=== PATIENT | female | born 1990 | race Caucasian/White ===

== ENCOUNTER 2016-07-21 03:36 | Inpatient (IN) | payer BC ==
[2016-07-21] MEDS ORDERED: Lactated Ringers 2,000 ML IV ONE (03:54)
[2016-07-21] MEDS ORDERED: BRETHINE 1 MG/ML SQ ONE (04:02)
[2016-07-21] MEDS ORDERED: Lactated Ringers 1,000 ML IV ONE (04:08)
[2016-07-21] MEDS ORDERED: Reglan 10 MG/2 ML IV SCH (04:15)
[2016-07-21] MEDS ORDERED: BICITRA 30 ML CUP PO SCH (04:15)
[2016-07-21] MEDS ORDERED: Pepcid 20 MG VIAL IV SCH (04:15)
[2016-07-21 04:21] LABS: Mean Cell Volume 95.3 fl (78-100); Mean Platelet Volume 11.9 fl (6-9.5); Platelet Count 312 K/mm3 (150-450); Red Blood Count 3.83 M/mm3 (4.1-5.4); Red Cell Distribution Width 12.4 % (11.5-14.0)
[2016-07-21] MEDS ORDERED: KEFZOL 1 GM ONE (04:26)
[2016-07-21] MEDS ORDERED: Lactated Ringers 1,000 ML IV SCH (04:30)
[2016-07-21 04:41] LABS: Mean Corpuscular Hemoglobin 31.8 pg (26-32)
[2016-07-21 04:54] LABS: INR 0.94 (0.8-3.0); PROTIME 10.6 SECONDS (9.95-12.35)
[2016-07-21 04:57] LABS: PTT 26.5 SECONDS (25.3-37.0)
[2016-07-21] MEDS ORDERED: SUBLIMAZE 100 MCG/2 ML IV ONE (05:00)
[2016-07-21] MEDS ORDERED: Naropin 0.5% 30 ML VIAL IJ ONE (05:00)
[2016-07-21] MEDS ORDERED: Ephedrine Sulfate 50 MG/ML IV ONE (05:00)
[2016-07-21] MEDS ORDERED: Astramorph-Pf 5 MG/10 ML IV ONE (05:00)
[2016-07-21 05:27] LABS: Bacteria FEW /HPF (NEGATIVE); COMPLETE URINE MICROSCOPIC? YES; Collection Type CLEAN CATCH; Epithelial Cells MODERATE /HPF (FEW); Mucus SLIGHT /HPF (NEGATIVE); Ph 6.5 (5-6); WBC 15-25 /HPF (0-5)
[2016-07-21] MEDS ORDERED: Dextrose 5%-Lr IV Solution 1000 ML 1,000 ML IV ONE (07:30)
[2016-07-21] MEDS ORDERED: TYLENOL EXTRA STRENGTH 500 MG PO PRN (07:40)
[2016-07-21] MEDS ORDERED: Dulcolax 10 MG SUPP PR PRN (07:40)
[2016-07-21] MEDS: Dextrose 5%-Lr IV Solution 1000 ML 1,000 ML IV SCH ×2 (07:40→17:10)
[2016-07-21] MEDS ORDERED: Mylicon 80MG PO PRN (07:40)
[2016-07-21] MEDS ORDERED: CORTISONE 1% CREAM TP PRN (07:40)
[2016-07-21] MEDS ORDERED: LANSINOH 40 GM TOP PRN (07:40)
[2016-07-21] MEDS ORDERED: Anucort-HC SUPPOSITORY PR PRN (07:40)
[2016-07-21] MEDS ORDERED: Dermoplast Spray TP PRN (07:40)
[2016-07-21] MEDS ORDERED: TUCKS TP PRN (07:40)
[2016-07-21] MEDS ORDERED: Nubain 10 MG/ML IV PRN (07:52)
[2016-07-21] MEDS ORDERED: BENADRYL 50 MG/ML IV PRN (07:52)
[2016-07-21] MEDS ORDERED: DEMEROL 50 MG IV PRN (07:52)
[2016-07-21] MEDS ORDERED: CLARITIN 10 MG PO PRN (07:52)
[2016-07-21] MEDS ORDERED: MORPHINE SULFATE 2 MG INJ IV PRN (07:52)
[2016-07-21] MEDS ORDERED: Zofran 4 MG/2 ML VIAL IV PRN (07:52)
[2016-07-21] MEDS ORDERED: Narcan 0.4 MG/ML IV PRN (07:52)
[2016-07-21] MEDS ORDERED: HOLD NARCOTIC ANALGESICS AND SEDATIVES X24 HR MC PRN (07:52)
--- NOTE | 2016-07-21 08:20 | XRAY ---
Indication: Cough. Elevated WBC. Comparison: None Portable apical lordotic chest demonstrate normal heart, lungs, and bony thorax.
[2016-07-21] MEDS: ROCEPHIN 1 Gm-D5w 50 ml Bag** 50 ML IV SCH (08:32)
[2016-07-21] MEDS: Zithromax 500 MG/ 250 ML NaCl Premix 250 ML IV SCH ×2 (09:16→09:30)
[2016-07-21] MEDS: Colace 100 MG PO SCH ×2 (10:27→22:06)
[2016-07-21] MEDS: FERREX 150 PO SCH (10:28)
[2016-07-21] MEDS ORDERED: Adacel Vial IM ONE (11:10)
--- NOTE | 2016-07-21 14:33 | OP ---
SURGERY DATE: 07/21/2016 TIME OF SURGERY: 0438 PREOPERATIVE DIAGNOSES: 1. Term intrauterine . 2. Active labor. 3. History of previous section. 4. Undesired fertility. POSTOPERATIVE DIAGNOSES: 1. Term intrauterine . 2. Active labor. 3. History of previous section. 4. Undesired fertility. 5. Delivered. OPERATIVE PROCEDURES: 1) Recent lower uterine segment transverse incision section. 2) Bilateral tubal ligation by partial salpingectomy. SURGEON: Dr. Vargas. ANESTHESIA: Spinal. HISTORY: The patient is a 25 year old white female presenting now in active labor. The patient was noted to be 4 cm and writhing in pain. She received terbutaline to help slow down the contractions as she had planned for repeat . Surgery team was called in at 4 o'clock in the morning. After discussing with the patient she desired to have the section performed. She was appraised of the risks of the procedure including risk of wound infection, bleeding requiring transfusion, possible injury to any intra-abdominal organs, also, failure rate of the tubal procedure of 1:300. The patient verbalized her understanding and desired to have the procedure performed. DESCRIPTION OF PROCEDURE: The patient was prepped and draped in the supine position. After adequate regional anesthesia was confirmed, a Pfannenstiel incision was opened at the previous scar and carried down sharply through the fascia which was divided in a horizontal fashion. The rectus muscles were then bluntly and sharply dissected away from the overlying fascia, and bluntly retracted laterally. The peritoneal cavity was entered. A bladder flap was developed and the bladder was retracted inferiorly. The uterus was scored in a horizontal fashion and entered in the midline. The wound was extended using bandage scissors. A white male was brought out through the abdominal wound. The cord was doubly clamped and divided between the clamps. The baby was handed off for further care. The placenta was then manually removed from the uterus. The uterus was exteriorized and wrapped in moist gauze. The wound edges were grasped with Jim clamps and the wound was then reapproximated using 1-0 chromic suture in a running, interlocking fashion. A Victoria clamp was used to elevate the left tube. A window was made in the mesosalpinx and the tube was tied on either side of the elevated area, and the interceding section was excised. The exposed edges of the tube were then cauterized using Bovie. The right tube was similarly treated. The cul-de-sac area was swabbed clear of blood and amniotic fluid and the uterus was replaced into the abdominal cavity. The pericolic gutters were also swabbed clear of blood and amniotic fluid. The peritoneum was then repaired using 3-0 chromic suture in running fashion. The fascia was repaired using 0 Vicryl suture in a running fashion. The skin edges were then reapproximated using annelise. The sponge, needle and instrument counts were reported as correct at the end of the procedure. The patient received 2 grams of Ancef intraoperatively after the cord was clamped. Estimated blood loss 250 cc. The patient was taken back to the recovery room in good condition.
[2016-07-21] MEDS ORDERED: PROVENTIL 2.5 MG/3 ML NEB IH ONE (16:02)
[2016-07-21] MEDS: PERCOCET TABLET 5/325MG PO PRN ×2 (17:06→23:44)
[2016-07-21] MEDS ORDERED: PROVENTIL 2.5 MG/3 ML NEB IH SCH (19:00)
[2016-07-21] MEDS: MOTRIN 400 MG PO PRN (20:12)
[2016-07-22] MEDS: Dextrose 5%-Lr IV Solution 1000 ML 1,000 ML IV SCH (01:23)
[2016-07-22] MEDS: PERCOCET TABLET 5/325MG PO PRN (05:20)
[2016-07-22] MEDS ORDERED: Restoril 15 MG PO PRN (06:00)
[2016-07-22] MEDS ORDERED: Phenergan 25 MG INJ IM PRN (06:00)
[2016-07-22] MEDS ORDERED: DEMEROL 75 MG IM PRN (06:00)
[2016-07-22] MEDS ORDERED: Ambien 10 MG PO PRN (06:00)
[2016-07-22 06:03] LABS: Mean Cell Volume 98.4 fl (78-100); Mean Corpuscular Hemoglobin 31.6 pg (26-32); Platelet Count 285 K/mm3 (150-450); Red Blood Count 3.13 M/mm3 (4.1-5.4); Red Cell Distribution Width 12.6 % (11.5-14.0); White Blood Count 16.8 K/mm3 (4.0-10.5)
[2016-07-22 07:39] LABS: Total Cells Counted 100
[2016-07-22 07:40] LABS: Platelet Estimate NORMAL (NORMAL)
[2016-07-22] MEDS: ROCEPHIN 1 Gm-D5w 50 ml Bag** 50 ML IV SCH (08:25)
[2016-07-22] MEDS: Zithromax 500 MG/ 250 ML NaCl Premix 250 ML IV SCH (09:17)
[2016-07-22] MEDS: FERREX 150 PO SCH (09:18)
[2016-07-22] MEDS: Colace 100 MG PO SCH ×2 (09:18→22:09)
[2016-07-22] MEDS: MOTRIN 400 MG PO PRN ×2 (09:30→17:25)
[2016-07-22] MEDS: PROVENTIL 2.5 MG/3 ML NEB IH PRN (09:47)
[2016-07-22] MEDS: Tylenol #3 Tablet PO PRN (19:53)
[2016-07-23] MEDS: Tylenol #3 Tablet PO PRN ×3 (00:32→20:02)
[2016-07-23] MEDS: MOTRIN 400 MG PO PRN ×3 (03:30→17:46)
[2016-07-23] MEDS: ROCEPHIN 1 Gm-D5w 50 ml Bag** 50 ML IV SCH (08:02)
[2016-07-23] MEDS: Colace 100 MG PO SCH ×2 (09:36→20:03)
[2016-07-23] MEDS: FERREX 150 PO SCH (09:36)
[2016-07-23] MEDS: Zithromax 500 MG/ 250 ML NaCl Premix 250 ML IV SCH (09:41)
[2016-07-23] MEDS ORDERED: PROVENTIL 2.5 MG/3 ML NEB IH ONE ×2 (15:37→22:03)
[2016-07-23] MEDS: PROVENTIL 2.5 MG/3 ML NEB IH PRN ×2 (15:43→22:05)
[2016-07-23 22:09] VITALS: O2SAT 97
[2016-07-24] MEDS: Tylenol #3 Tablet PO PRN ×2 (00:03→04:57)
[2016-07-24] MEDS: MOTRIN 400 MG PO PRN ×2 (01:58→07:55)
[2016-07-24 02:13] VITALS: PULSE 90
--- NOTE | 2016-07-24 07:39 | DS ---
DISCHARGE DIAGNOSES: 1) TERM INTRAUTERINE DELIVERY. REPEAT SECTION DELIVERY. 2) BRONCHITIS WITH BRONCHOSPASM. HOSPITAL COURSE: The patient is a 25 year-old white female who presented to labor and delivery in labor at 4 cm dilated. She had an elective repeat section scheduled and this was thus performed on the morning at 0430 hours due to the patient being in active labor. The patient did well postoperatively although she came in with bronchitis. She had significant cough, significant white blood cell count elevation of 25,000 and initially she had some wheezes bilaterally as well. The patient was treated with IV Rocephin and Zithromax. Over the ensuing three days she did improve with this. Her vital signs remained good. Her O2 saturations remained in normal range at 96-97% on room air. The patient was felt to be ready for discharge home on the morning of 07/24/2016. She was discharged home on Augmentin 875 mg twice a day for seven days. She was given Tylenol #3 for pain control and a breast pump as she is breast feeding. The patient was instructed to return to the office in three days for follow up evaluation and removal of the annelise or to call if she had any problems in the interim with increasing fever, shortness of breath, redness of the wound site, abdominal pain or increase in vaginal bleeding.
[2016-07-24] MEDS: Colace 100 MG PO SCH (10:19)
[2016-07-24] MEDS: FERREX 150 PO SCH (10:19)
[2016-07-24 11:52] VITALS: BP 127/78
== END 2016-07-24 11:40 | disposition home or self-care (01) | DRG 766 ==
LOC: OB 03:36 → OBSVTOIN 04:00
PROVIDERS: ADMIT Family Medicine; ATTEND Family Medicine
PROC: 10D00Z1 Extraction of Products of Conception, Low, Open Approach (ICD-10-PCS; principal; 2016-07-21)
PROC: 0UB70ZZ Excision of Bilateral Fallopian Tubes, Open Approach (ICD-10-PCS; 2016-07-21)
DX: O34.219 Maternal care for unspecified type scar from previous cesarean delivery (principal); Z3A.38 38 weeks gestation of pregnancy; Z37.0 Single live birth; Z30.2 Encounter for sterilization; J40 Bronchitis, not specified as acute or chronic
CPT/HCPCS: 01961; 36415; 64425; 71010; 76942; 80307; 81000; 85025; 85027; 85610; 85730; 86850; 86900; 86901; 87086; 88302; 90715; 94640; 94760; 94799; G0378; J0456; J0690; J0696; J2274; J2405; J2795; J3010; L0625; A9270-GY

== ENCOUNTER 2022-02-05 11:34 | Emergency (ER) | payer MEDICAID, OTHER ==
--- NOTE | 2022-02-05 11:37 | ERPHSYRPT ---
- History of Present Illness Time Seen by Provider: 02/05/22 11:37 Source: patient Exam Limitations: no limitations Physician History: This is a 31-year-old white female who has had intermittent back/flank pain on the right side for 6 days with associated nonmeasured fever, chills and sweats. It has been significant enough at times to wake her up out of sleep. Now she has no significant symptoms. Often she has a 2 out of 10 pressure sensation. Patient denies any acute traumatic injury. She does not have dysuria or hematuria. Patient states that she often lifts 40 to 60 pounds at work several times a day when she is working. Timing/Duration: day(s) (6) Method of Injury: unknown Quality: pressure Back Pain Location: paraspinous muscles (Right side) Severity of Pain-Max: moderate Severity of Pain-Current: none Associated Symptoms: fever, chills, sweating, lower back pain (The right side), other (Today she does not have any pain symptoms. She is afebrile) Allergies/Adverse Reactions: No Known Allergies Allergy (Verified 02/05/22 11:56) Hx Tetanus, Diphtheria Vaccination/Date Given: No (DOESNT THINK SO) Hx Influenza Vaccination/Date Given: Yes (2 YEARS AGO) Hx Pneumococcal Vaccination/Date Given: No Travel Risk - International Travel Have you traveled outside of the country in past 3 weeks: No - Coronavirus Screening Are you exhibiting any of the following symptoms?: No Close contact with a COVID-19 positive Pt in past 14-21 Days: No - Review of Systems Constitutional: No Symptoms Eyes: No Symptoms Ears, Nose, & Throat: No Symptoms Respiratory: No Symptoms Cardiac: No Symptoms Abdominal/Gastrointestinal: No Symptoms Genitourinary Symptoms: Flank Pain (Right side) Musculoskeletal: No Symptoms Skin: No Symptoms Neurological: No Symptoms Psychological: No Symptoms Endocrine: No Symptoms Hematologic/Lymphatic: No Symptoms Immunological/Allergic: No Symptoms All Other Systems: Reviewed and Negative - Past Medical History Pertinent Past Medical History: No Neurological History: No Pertinent History Cardiac History: No Pertinent History Respiratory History: Other Endocrine Medical History: No Pertinent History Musculoskeletal History: Other Other Medical History: Pt is a smoker - Past Surgical History Past Surgical History: Yes Female Surgical History: Section - Social History Smoking Status: Heavy tobacco smoker How long have you smoked: 13 y Exposure to second hand smoke: Yes Drug Use: none Patient Lives Alone: No - Nursing Vital Signs Nursing Vital Signs: Initial Vital Signs Temperature 98.7 F 02/05/22 11:39 Pulse Rate 124 H 02/05/22 11:39 Blood Pressure 156/84 02/05/22 11:39 O2 Sat by Pulse Oximetry 98 02/05/22 11:39 Pain Scale Pain Intensity [Right 2 Posterior Medial Back] Pain Intensity 2 - Physical Exam General Appearance: no apparent distress, alert, anxiety Eye Exam: PERRL/EOMI, eyes nml inspection Ears, Nose, Throat Exam: normal ENT inspection, moist mucous membranes Neck Exam: normal inspection, non-tender, supple, full range of motion Respiratory Exam: normal breath sounds, lungs clear, airway intact, No chest tenderness, No respiratory distress Cardiovascular Exam: tachycardia Gastrointestinal Exam: soft, normal bowel sounds, No tenderness Pelvic Exam: not done Rectal Exam: not done Back Exam: normal inspection, normal range of motion, CVA tenderness (Right), No vertebral tenderness Extremity Exam: normal inspection, normal range of motion, pelvis stable Neurologic Exam: alert, oriented x 3, cooperative, golf course starter II-XII nml as tested, normal mood/affect, nml cerebellar function, nml station & gait, sensation nml Skin Exam: normal color, warm, dry Lymphatic Exam: No adenopathy SpO2 Interpretation: normal O2 Delivery: Room Air - Course Nursing assessment & vital signs reviewed: Yes Ordered Tests: Active Orders 24 hr Category Date Time Status CULTURE,URINE Stat Lab 02/05/22 12:01 Received HCG,QUALITATIVE URINE Stat Lab 02/05/22 12:01 Completed UA W/RFX CULTURE Stat Lab 02/05/22 12:01 Completed Lab/Rad Data: Laboratory Results 02/05/22 02/05/22 Range/Units 12:01 12:01 Urinalys Dipstick Clnc MAIN LAB Urine Color YELLOW (YELLOW) Urine Appearance SLIGHTLY CLOUDY (CLEAR) Urine pH 6.0 (5-6) Ur Specific [place] 1.025 (1.005-1.025) POC Urine Protein Conf >=300 (Negative) Urine Ketones NEGATIVE (NEGATIVE) Urine Nitrite POSITIVE (NEGATIVE) Urine Bilirubin SMALL (NEGATIVE) Urine Urobilinogen 1 (0-1) mg/dL Urine Leukocytes NEGATIVE (NEGATIVE) Urine WBC (Auto) 26-50 (0-5) /HPF Urine RBC (Auto) 6-10 (0-2) /HPF U Hyaline Cast (Auto) 3-5 (0-2) /LPF U Epithel Cells (Auto) FEW (FEW) /HPF Urine Bacteria (Auto) FEW (NEGATIVE) /HPF Urine RBC MODERATE (0-5) Stoney/ul Urine Mucus (Auto) SLIGHT (NEGATIVE) /HPF Ur Culture Indicated? YES Urine Glucose NEGATIVE (NEGATIVE) mg/dL Urine HCG, Qual NEGATIVE (Negative) - Progress Progress: unchanged Counseled pt/family regarding: lab results, diagnosis - Departure Departure Disposition: Home Clinical Impression: UTI (urinary tract infection) Condition: Stable Critical Care Time: No Referrals: RIKKI MATHEWS NP [Primary Care Provider] - Follow up/PCP as directed Additional Instructions: Drink plenty of clear liquids. Use Tylenol and ibuprofen for pain control. Take your antibiotics as prescribed. Prescriptions: Ciprofloxacin [Cipro 500 MG] 500 mg PO BID #14 tablet
[2022-02-05 12:45] LABS: Bacteria FEW /HPF (NEGATIVE); Epithelial Cells FEW /HPF (FEW); Mucus SLIGHT /HPF (NEGATIVE); WBC 26-50 /HPF (0-5)
[2022-02-05 12:52] LABS: Appearance SLIGHTLY CLOUDY (CLEAR); Bilirubin SMALL (NEGATIVE); Dipstick done @ ? MAIN LAB; Glucose NEGATIVE (NEGATIVE); Ketones NEGATIVE (NEGATIVE); Nitrite POSITIVE (NEGATIVE); Protein,Urine Dip >=300 (Negative); RBC MODERATE Ery/ul (0-5); Specific Gravity 1.025 (1.005-1.025); Urobilinogen 1 mg/dL (0-1)
[2022-02-05 12:53] LABS: Urine Cultured Indicated? YES
[2022-02-05] MEDS ORDERED: Rocephin 1000 MG INJ IM ONE (13:16)
[2022-02-05] MEDS ORDERED: ROCEPHIN 1 Gm-D5w 50 ml Bag** 1 G/50 ML IVPB IV STA (13:25)
[2022-02-05] MEDS ORDERED: ROCEPHIN 1 Gm-D5w 50 ml Bag** 1 G/50 ML IVPB IV ONE (13:25)
[2022-02-05 13:39] VITALS: BP 121/78; PULSE 96; O2SAT 97
== END 2022-02-05 13:45 | disposition home or self-care (01) ==
LOC: ED 11:34
DX: N39.0 Urinary tract infection, site not specified (principal); R10.9 Unspecified abdominal pain; R50.9 Fever, unspecified; Z72.0 Tobacco use
CPT/HCPCS: 36000; 81015; 81025; 87077; 87086; 87186; 96365; 99283; J0696

== ENCOUNTER 2024-11-20 05:13 | Emergency (ER) | payer BC ==
[2024-11-20 05:33] VITALS: TEMP 98.3
[2024-11-20 06:04] LABS: BASOPHIL % 0.8 % (0.1-1.2); Basophil (Absolute #) 0.09 x10^3/uL (0.01-0.08); Eosinophil (Absolute #) 0.20 x10^3/uL (0.04-0.36); Hematocrit 40.0 % (34.1-44.9); Hemoglobin 13.5 g/dL (11.2-15.7); IMMATURE GRAN # 0.04 x10^3u/L (0.001-0.031); IMMATURE GRAN % 0.4 % (0.001-0.429); Lymphocyte (Absolute #) 1.89 x10^3/uL (1.18-3.74); Mean Corpuscular Hemoglobin 31.8 pg (25.6-32.2); Mean Corpuscular Hgb Concent. 33.8 g/dL (32.2-35.5); Monocyte (Absolute #) 0.64 x10^3/uL (0.24-0.86); NUCLEATED RBC # 0.00 x10^3u/L (0.00-0.012); NUCLEATED RBC % 0.0 % (0.00-0.2); Platelet Count 241 x10^3/uL (182-369); Red Blood Count 4.24 x10^6/uL (3.93-5.22); White Blood Count 11.0 x10^3/uL (3.98-10.04)
[2024-11-20 06:10] LABS: Glucose, Urine Negative (Negative); Protein,Urine Dip Negative (Negative); RBC 0-2 /HPF (0-5)
[2024-11-20 06:16] LABS: Calcium 9.9 mg/dL (8.4-10.2); Carbon Dioxide 19.0 mmol/L (22-30); Creatinine 1 0.74 mg/dL (0.52-1.04); EST GLOMERULAR FILTRATION RATE 108.1 ML/MIN; Glucose 113.0 mg/dL (74-106); HCG URINE TEST NEGATIVE (NEGATIVE); Potassium 4.4 mmol/L (3.5-5.1); SGOT/AST 24.0 U/L (14-36); SGPT/ALT 12.0 U/L (0-35); Total Protein 7.3 g/dL (6.3-8.2)
[2024-11-20] MEDS ORDERED: TORAdol 30 mg Injection ONE (06:19)
[2024-11-20] MEDS: TORAdol 30 mg Injection IV ONE (06:21)
--- NOTE | 2024-11-20 06:22 | ERPHSYRPT ---
- History of Present Illness Historian: patient, family Exam Limitations: no limitations Patient Subjective Stated Complaint: c/o abdominal pain Triage Nursing Assessment: patient brought to ED by with c/o right sided abdominal pain that started this morning. aptient has bowel sounds in all 4 quads, pain is 9/10 and radiates to back and flank area, states that is constant and sharp, afebrile, gait stead, vitals wnl, skin w/n/d, denies N/V/D, patient doesn't appear to be in any distress at this time. Hx Tetanus, Diphtheria Vaccination/Date Given: No (DOESNT THINK SO) Hx Influenza Vaccination/Date Given: No Hx Pneumococcal Vaccination/Date Given: No <ARIES MONTEMAYOR - Last Filed: 11/20/24 06:18> <ANTONIO DAHL - Last Filed: 11/20/24 07:51> - History of Present Illness Time Seen by Provider: 11/20/24 06:16 Physician History: 34-year-old female presented in the ER with complaints of right-sided abdominal pain for almost 2 to 3 hours moderate to severe sharp shooting with some radiation to the right groin area, aggravation with palpation movements and partial relief with being still. Reports some burning urination but no hematuria hesitancy or urgency. No fever or chills reported. No history of kidney stones or recurrent UTI. Has associated nausea but no vomiting. (ARIES MONTEMAYOR) Allergies/Adverse Reactions: No Known Allergies Allergy (Verified 11/20/24 05:23) Travel Risk - International Travel Have you traveled outside of the country in past 3 weeks: No - Emerging Infectious Disease Are you exhibiting symptoms associated with any current EIDs: Yes Symptoms: Abdominal Pain <ARIES MONTEMAYOR - Last Filed: 11/20/24 06:18> - Review of Systems Constitutional: No Symptoms Ears, Nose, & Throat: No Symptoms Respiratory: No Symptoms Cardiac: No Symptoms Abdominal/Gastrointestinal: Abdominal Pain, Nausea Genitourinary Symptoms: Dysuria, Flank Pain Musculoskeletal: Back Pain Skin: No Symptoms Neurological: No Symptoms Psychological: No Symptoms Endocrine: No Symptoms Hematologic/Lymphatic: No Symptoms <ARIES MONTEMAYOR - Last Filed: 11/20/24 06:18> - Past Medical History Pertinent Past Medical History: No Neurological History: No Pertinent History Cardiac History: No Pertinent History Respiratory History: Other Endocrine Medical History: No Pertinent History Musculoskeletal History: Other Other Medical History: Pt is a smoker, 2 c-sections - Past Surgical History Past Surgical History: Yes Female Surgical History: Section - Female History Hx Last Menstrual Period: unsure Hx Now: No - Social History Smoking Status: Heavy tobacco smoker How long have you smoked: 13 y Exposure to second hand smoke: Yes Drug Use: none - Social Determinants of Health Will the patient participate in the screening: Yes Do you worry about a steady place to live?: No Do you have any problems with any of the following?: No known problems In the past 12 months,have you had to go without utilities?: No Transportation Issues: No Has anyone in your support network made you feel unsafe?: No Have you or anyone in your house had to go w/o enough food: No <ARIES MONTEMAYOR - Last Filed: 11/20/24 06:18> - Physical Exam General Appearance: no apparent distress Eye Exam: PERRL/EOMI Ears, Nose, Throat Exam: normal ENT inspection Neck Exam: normal inspection, full range of motion Respiratory Exam: normal breath sounds, lungs clear Cardiovascular Exam: regular rate/rhythm, normal heart sounds Gastrointestinal/Abdomen Exam: soft, normal bowel sounds, tenderness (Right flank/right upper and lower quadrant mild guarding) Back Exam: CVA tenderness (Right side) Extremity Exam: normal inspection, normal range of motion Neurologic Exam: alert, oriented x 3, cooperative Skin Exam: normal color SpO2 Interpretation: normal SpO2: 99 O2 Delivery: Room Air <ARIES MONTEMAYOR - Last Filed: 11/20/24 06:18> - Nursing Vital Signs Nursing Vital Signs: Initial Vital Signs Temperature 98.3 F 11/20/24 05:23 Pulse Rate 72 11/20/24 05:23 Respiratory Rate 17 11/20/24 05:23 Blood Pressure 132/66 11/20/24 05:23 O2 Sat by Pulse Oximetry 98 11/20/24 05:23 Pain Scale Pain Intensity 0 Ordered Tests: Active Orders 24 hr Category Date Time Status IV Insertion STAT Care 11/20/24 05:44 Active ABDOMEN AND PELVIS W/0 CONTRAS [CT] Stat Exams 11/20/24 06:33 Completed CBC W DIFF Stat Lab 11/20/24 05:45 Completed CMP Stat Lab 11/20/24 05:45 Completed CULTURE,URINE Stat Lab 11/20/24 05:45 Received HCG QUALITATIVE, URINE Stat Lab 11/20/24 05:45 Completed UA W/RFX UR CULTURE Stat Lab 11/20/24 05:45 Completed Medication Summary Discontinued Medications Generic Name Dose Route Start Last Admin Trade Name Jovanni PRN Reason Stop Dose Admin Sodium Chloride 1,000 mls @ 999 mls/hr 11/20/24 06:17 11/20/24 07:23 Sodium Chloride 0.9% 1000 Ml IV 11/20/24 07:17 Infused .Q1H1M STA Infusion Sodium Chloride Confirm 11/20/24 06:19 Sodium Chloride 0.9% 1000 Ml Administered 11/20/24 06:20 Dose 1,000 mls @ ud .ROUTE .STK-MED ONE Ketorolac Tromethamine 30 mg 11/20/24 06:17 11/20/24 06:21 Ketorolac Tromethamine 30 Mg/Ml Inj IV 11/20/24 06:18 30 mg STAT ONE Administration Ketorolac Tromethamine Confirm 11/20/24 06:19 Ketorolac Tromethamine 30 Mg/Ml Inj Administered 11/20/24 06:20 Dose 30 mg .ROUTE .STK-MED ONE Ondansetron HCl 4 mg 11/20/24 06:17 11/20/24 06:24 Ondansetron Hcl 4 Mg/2 Ml Vial IV 11/20/24 06:18 4 mg STAT ONE Administration Ondansetron HCl Confirm 11/20/24 06:23 Ondansetron Hcl 4 Mg/2 Ml Vial Administered 11/20/24 06:24 Dose 4 mg .ROUTE .STK-MED ONE Lab/Rad Data: Laboratory Result Diagrams 11/20/24 05:45 11/20/24 05:45 Laboratory Results 11/20/24 11/20/24 11/20/24 Range/Units 05:45 05:45 05:45 WBC 11.0 H (3.98-10.04) x10^3/uL RBC 4.24 (3.93-5.22) x10^6/uL Hgb 13.5 (11.2-15.7) g/dL Hct 40.0 (34.1-44.9) % MCV 94.3 (79.4-94.8) fL MCH 31.8 (25.6-32.2) pg MCHC 33.8 (32.2-35.5) g/dL RDW 12.3 (11.7-14.4) % Plt Count 241 (182-369) x10^3/uL MPV 11.0 (9.4-12.3) fL Gran % 74.0 H (34.0-71.1) % Immature Gran % (Auto) 0.4 (0.001-0.429) % Nucleat RBC Rel Count 0.0 (0.00-0.2) % Eos # (Auto) 0.20 (0.04-0.36) x10^3/uL Immature Gran # (Auto) 0.04 H (0.001-0.031) x10^3u/L Absolute Lymphs (auto) 1.89 (1.18-3.74) x10^3/uL Absolute Monos (auto) 0.64 (0.24-0.86) x10^3/uL Absolute Nucleated RBC 0.00 (0.00-0.012) x10^3u/L Lymphocytes % 17.2 L (19.3-51.7) % Monocytes % 5.8 (4.7-12.5) % Eosinophils % 1.8 (0.7-5.8) % Basophils % 0.8 (0.1-1.2) % Absolute Granulocytes 8.11 H (1.56-6.13) x10^3/uL Basophils # 0.09 H (0.01-0.08) x10^3/uL Sodium 139 (135-145) mmol/L Potassium 4.4 (3.5-5.1) mmol/L Chloride 110 H (98-107) mmol/L Carbon Dioxide 19 L (22-30) mmol/L Anion Gap 13.9 (5-15) MEQ/L BUN 16 (7-17) mg/dL Creatinine 0.74 (0.52-1.04) mg/dL Estimated GFR 108.1 ML/MIN Glucose 113 H (74-106) mg/dL Calcium 9.9 (8.4-10.2) mg/dL Total Bilirubin 0.30 (0.2-1.3) mg/dL AST 24 (14-36) U/L ALT 12 (0-35) U/L Alkaline Phosphatase 61 (38-126) U/L Serum Total Protein 7.3 (6.3-8.2) g/dL Albumin 4.5 (3.5-5.0) g/dL Urine Color (Yellow) Urine Appearance (Clear) Urine pH (4.6-8.0) Ur Specific [place] (1.005-1.030) Urine Protein (Negative) Urine Glucose (UA) (Negative) mg/dL Urine Ketones (Negative) Urine Blood (Negative) Urine Nitrite (Negative) Urine Bilirubin (Negative) Urine Urobilinogen (0.2) mg/dL Ur Leukocyte Esterase (Negative) U Hyaline Cast (Auto) (0-2) /LPF Urine Microscopic RBC (0-5) /HPF Urine Microscopic WBC (0-5) /HPF Ur Epithelial Cells (None Seen) /HPF Urine Bacteria (None Seen) /HPF Urine Culture Reflexed (NO) Urine HCG, Qual NEGATIVE (NEGATIVE) 11/20/24 Range/Units 05:45 WBC (3.98-10.04) x10^3/uL RBC (3.93-5.22) x10^6/uL Hgb (11.2-15.7) g/dL Hct (34.1-44.9) % MCV (79.4-94.8) fL MCH (25.6-32.2) pg MCHC (32.2-35.5) g/dL RDW (11.7-14.4) % Plt Count (182-369) x10^3/uL MPV (9.4-12.3) fL Gran % (34.0-71.1) % Immature Gran % (Auto) (0.001-0.429) % Nucleat RBC Rel Count (0.00-0.2) % Eos # (Auto) (0.04-0.36) x10^3/uL Immature Gran # (Auto) (0.001-0.031) x10^3u/L Absolute Lymphs (auto) (1.18-3.74) x10^3/uL Absolute Monos (auto) (0.24-0.86) x10^3/uL Absolute Nucleated RBC (0.00-0.012) x10^3u/L Lymphocytes % (19.3-51.7) % Monocytes % (4.7-12.5) % Eosinophils % (0.7-5.8) % Basophils % (0.1-1.2) % Absolute Granulocytes (1.56-6.13) x10^3/uL Basophils # (0.01-0.08) x10^3/uL Sodium (135-145) mmol/L Potassium (3.5-5.1) mmol/L Chloride (98-107) mmol/L Carbon Dioxide (22-30) mmol/L Anion Gap (5-15) MEQ/L BUN (7-17) mg/dL Creatinine (0.52-1.04) mg/dL Estimated GFR ML/MIN Glucose (74-106) mg/dL Calcium (8.4-10.2) mg/dL Total Bilirubin (0.2-1.3) mg/dL AST (14-36) U/L ALT (0-35) U/L Alkaline Phosphatase (38-126) U/L Serum Total Protein (6.3-8.2) g/dL Albumin (3.5-5.0) g/dL Urine Color Yellow (Yellow) Urine Appearance Cloudy A (Clear) Urine pH 5.0 (4.6-8.0) Ur Specific [place] >=1.030 A (1.005-1.030) Urine Protein Negative (Negative) Urine Glucose (UA) Negative (Negative) mg/dL Urine Ketones Trace A (Negative) Urine Blood Trace (Negative) Urine Nitrite Negative (Negative) Urine Bilirubin Negative (Negative) Urine Urobilinogen 1.0 A (0.2) mg/dL Ur Leukocyte Esterase Negative (Negative) U Hyaline Cast (Auto) NONE SEEN (0-2) /LPF Urine Microscopic RBC 0-2 (0-5) /HPF Urine Microscopic WBC 6-10 A (0-5) /HPF Ur Epithelial Cells Many A (None Seen) /HPF Urine Bacteria Moderate A (None Seen) /HPF Urine Culture Reflexed YES (NO) Urine HCG, Qual (NEGATIVE) - Progress Counseled pt/family regarding: lab results, diagnosis, need for follow-up, rad results <ANTONIO DAHL - Last Filed: 11/20/24 07:51> - Progress Progress Note: 11/20/24 07:47 I interpreted the patient's laboratory data results. Based on the laboratory data results and history from the patient, the patient has leukocytosis, dysuria, the patient does have findings suggestive of urinary tract infection we will treat her with antibiotics. In addition, the patient has mild dehydration as evidence of ketones in her urine. The CT scan of the abdomen pelvis without contrast was interpreted by the radiologist and I reviewed the impression. The impression states unremarkable study. (ANTONIO DAHL) <ARIES MONTEMAYOR - Last Filed: 11/20/24 06:18> - Departure Departure Disposition: Home Critical Care Time: No <ANTONIO DAHL - Last Filed: 11/20/24 07:51> - Departure Clinical Impression: Dysuria, Bacteriuria, Pyuria, Mild dehydration, Leukocytosis Condition: Stable Referrals: ROCKY HAYWARD MD [Primary Care Provider, [facility]] - Follow up/PCP as directed Additional Instructions: Drink plenty of clear liquids. Use Tylenol and ibuprofen for pain control. Call your primary care provider today, 11/20/2024, to make arrangements for follow-up appointment for further evaluation management. Prescriptions: Ciprofloxacin [Cipro 500 MG] 500 mg PO BID #14 tablet
[2024-11-20] MEDS ORDERED: Zofran 4 MG/2 ML VIAL ONE (06:23)
[2024-11-20] MEDS: Zofran 4 MG/2 ML VIAL IV ONE (06:24)
--- NOTE | 2024-11-20 07:46 | XRAY ---
CLINICAL HISTORY: right side pain COMPARISON: None. TECHNIQUE: Contiguous axial images were obtained from the level of the diaphragm to the pubic symphysis without intravenous or oral contrast. Coronal and sagittal reconstructions were likewise performed and indicated to increase the sensitivity for detecting clinically relevant pathology. CT scan was performed according to ALARA (as low as reasonable achievable). FINDINGS: The visualized lung bases are clear. Evaluation of the abdominal and pelvic visceral organs is limited without intravenous contrast. The unenhanced liver, spleen, pancreas, and adrenal glands are grossly unremarkable. The gallbladder is present. The kidneys are normal in size and attenuation without obvious calcification. There is no hydronephrosis or perinephric stranding. The ureters are normal in caliber. The urinary bladder is normal in contour. Pelvic viscera are grossly unremarkable. No adenopathy or fluid collections are seen. No evidence of focal or diffuse bowel wall thickening or evidence of bowel obstruction is seen. The appendix is visualized in the right lower quadrant and appears within normal limits. The aorta is normal in caliber. No aggressive appearing osseous lesions are identified. IMPRESSION: 1. Unremarkable study. Electronically Signed by: Bola Austin MD. (11/20/2024 07:44:20 EDT)
[2024-11-20] MEDS: Levofloxacin 500 MG Tablet PO ONE (07:53)
[2024-11-20] MEDS ORDERED: Levofloxacin 500 MG Tablet ONE (07:53)
[2024-11-20 08:07] VITALS: BP 107/68; PULSE 89; RESP 16; O2SAT 98
== END 2024-11-20 08:17 | disposition home or self-care (01) ==
LOC: ED 05:13
DX: R30.0 Dysuria (principal); R82.71 Bacteriuria; R82.81 Pyuria; E86.0 Dehydration; D72.829 Elevated white blood cell count, unspecified; R10.9 Unspecified abdominal pain; Z79.899 Other long term (current) drug therapy; Z72.0 Tobacco use